=== PATIENT | male | born 1965 | race African-American/Black ===

== ENCOUNTER 2023-04-06 12:18 | Emergency (ER) | payer BC ==
[~2023-04-06] VITALS: Ht 193 cm; Wt 83.9 kg
--- NOTE | 2023-04-06 12:18 | NUR ---
BROUGHT BACK TO BED #6 AND TRIAGED. REPORT GIVEN TO MEENA
[2023-04-06 12:20] VITALS: BP_SYST 138; PULSE 86; RESP 19; O2SAT 99
[2023-04-06] MEDS ORDERED: NACL 0.9% 2,000 ML IV ONE (12:45)
[2023-04-06] MEDS ORDERED: HALOPERIDOL LACTATE 5 MG/ML VIAL IM ONE (12:45)
--- NOTE | 2023-04-06 12:53 | NUR ---
Met patient. Giving patient IV and medicines at this time. MD has evaluated patient and ordered labs and radiology tests.
[2023-04-06 12:57] VITALS: BP_SYST 136; PULSE 93; RESP 18; TEMP 98.8; O2SAT 99
--- NOTE | 2023-04-06 12:58 | NUR ---
Patient returning from radiology at this time.
[2023-04-06 12:59] LABS: BASOPHILS # (AUTO) 0.1 K/uL (0.0-0.2); BASOPHILS % (AUTO) 0.7 % (0.0-2.0); EOSINOPHILS % (AUTO) 0.1 % (0.0-4.0); HEMATOCRIT 41.7 % (36-54); HEMOGLOBIN 13.8 g/dL (14.0-18.0); LYMPHOCYTES # (AUTO) 0.9 K/uL (1.0-5.5); LYMPHOCYTES % (AUTO) 6.8 % (20.5-51.5); MEAN CORPUSCULAR HEMOGLOBIN 30 pg (27-31); MEAN CORPUSCULAR HGB CONC 33 % (32-36); MEAN CORPUSCULAR VOLUME 89 fL (79.0-98.0); MONOCYTES # (AUTO) 0.4 K/uL (0.0-1.0); MONOCYTES % (AUTO) 2.9 % (1.7-9.3); NEUTROPHILS # (AUTO) 12.1 K/uL (1.8-7.7); NEUTROPHILS % (AUTO) 89.5 % (40.0-70.0); PLATELET COUNT (AUTO) 210 K/uL (130-430); RED BLOOD CELL COUNT(AUTO) 4.69 MIL/uL (4.2-6.2); RED CELL DISTRIBUTION WIDTH 13.6 % (9.0-15.0); WHITE BLOOD COUNT (AUTO) 13.6 K/uL (4.8-10.8)
--- NOTE | 2023-04-06 13:00 | NUR ---
# 18 gauge angiocath placed to left forearm. Use of asceptic technique. Opsite placed over site. Blood return noted. Blood for lab drawn from site. Flushed with 10 cc of normal saline. No evidence of infiltration noted. Patient tolerated well.
[2023-04-06 13:06] LABS: ACETONE, SERUM NEGATIVE (NEGATIVE)
[2023-04-06 13:12] LABS: ANION GAP 13 (5-15); CALCIUM 9.2 mg/dL (8.4-11.0); CHLORIDE 98 mmol/L (98-107); CREATININE 1.78 mg/dL (0.55-1.30); GFR AFRICAN AMERICAN 51 mL/min (>90); GLUCOSE 286 mg/dL (74-106); UREA NITROGEN, BLOOD 27 mg/dL (8-21)
[2023-04-06 13:13] LABS: PROTHROMBIN TIME 10.7 SECS (9.5-12.5)
--- NOTE | 2023-04-06 13:15 | NUR ---
Medicated per MD orders. IVF infusing with no s/s of infiltration at this time. Will cont to monitor
[2023-04-06 13:27] LABS: ALANINE AMINOTRANSFERASE 11 U/L (12-78); ALBUMIN 4.2 g/dL (3.4-4.8); AMYLASE 20 U/L (0-100); ASPARTATE AMINOTRANSFERASE 17 U/L (10-37); LIPASE 40 U/L (73-393); TOTAL BILIRUBIN 0.7 mg/dL (0.0-1.0)
--- NOTE | 2023-04-06 13:53 | NUR ---
Pt IVF completed. Pt resting with eyes closed, respirations even and unlabored.
--- NOTE | 2023-04-06 13:57 | NUR ---
Pt ambulates with steady gait to the restroom to provide urine specimen.
[2023-04-06] MEDS ORDERED: METO-290 PO (14:23)
[2023-04-06] MEDS ORDERED: OMEP20CA15 PO (14:23)
--- NOTE | 2023-04-06 15:08 | NUR ---
Patient given written and verbal discharge instructions and verbalizes understanding. ER MD discussed with patient the results and treatment provided. Patient in stable condition. ID arm band removed. IV catheter removed intact and dressing applied, no active bleeding. Rx of reglan and zofran given. Patient educated on pain management and to follow up with PMD. Pain Scale 0/10. Opportunity for questions provided and answered. Medication side effect fact sheet provided.
== END 2023-04-06 15:08 | disposition home or self-care (01) ==
LOC: SED 12:18
DX: K31.84 Gastroparesis (principal); R10.13 Epigastric pain; R11.2 Nausea with vomiting, unspecified; Z79.899 Other long term (current) drug therapy
CPT/HCPCS: 99285; 74176; 96360; 80053; 82009; 82150; 82962; 83690; 85025; 85610; 85730; 84484; 36415; 76376; 96372; 83605; 82397; J1630; J7030